=== PATIENT | female | born 1995 | race Hispanic/Latino ===

== ENCOUNTER 2017-02-04 15:41 | Inpatient (IN) | payer MEDICAID, OTHER, SELFPAY ==
[2017-02-04 16:18] VITALS: BMI 27.4
[2017-02-04] MEDS ORDERED: FLU VACC QS2017-18 36 mo. & older 0.5 ML SYRINGE IM ONE (17:00)
[2017-02-04] MEDS ORDERED: Penicillin G Potassium 5 MILL.UNITS VIAL ONE (17:14)
[2017-02-04] MEDS ORDERED: LR / Pitocin 40 units/1000 ml 1,000 ML ONE (17:18)
[2017-02-04] MEDS ORDERED: Lidocaine 1% (PF) 30 ML VIAL ONE (17:19)
[2017-02-04] MEDS ORDERED: Ibuprofen 800 MG TAB PO PRN (17:56)
[2017-02-04] MEDS ORDERED: HYDROcodone/Acetaminophen 5/325 mg Tablet PO PRN ×2 (17:56)
[2017-02-04] MEDS ORDERED: Lidocaine 1% (PF) 30 ML VIAL SC PRN (17:56)
[2017-02-04] MEDS ORDERED: Diphenoxylate HCl/Atropine Tablet PO PRN (17:56)
[2017-02-04] MEDS ORDERED: LR / Pitocin 40 units/1000 ml 1,000 ML IV PRN (17:56)
[2017-02-04] MEDS ORDERED: Carboprost 250 MCG/ML AMP IM PRN (17:56)
[2017-02-04] MEDS ORDERED: Penicillin G Potassium 5 MILL.UNITS in Sodium Chloride 0.9% 100 ML IVPB SCH (17:56)
[2017-02-04] MEDS ORDERED: Lactated Ringer's 1,000 ML IV SCH ×2 (17:56)
[2017-02-04] MEDS ORDERED: Ondansetron HCl/PF 4 MG/2 ML Vial IVP PRN ×2 (17:56→18:01)
[2017-02-04] MEDS ORDERED: Promethazine HCl 25 MG/ML VIAL IM PRN (17:56)
[2017-02-04] MEDS ORDERED: Acetaminophen/Codeine 30-300mg Tablet PO PRN ×2 (18:01)
[2017-02-04] MEDS ORDERED: Lanolin Ointment 7 GM TUBE TOP PRN (18:01)
[2017-02-04] MEDS ORDERED: Benzocaine/Menthol 20-0.5% 60 ML CAN TOP PRN (18:01)
[2017-02-04] MEDS ORDERED: Preparation H Ointment 28 GM TUBE PR PRN (18:01)
[2017-02-04] MEDS ORDERED: Adacel (T-DAP) 0.5 ML VIAL IM ONE (18:01)
[2017-02-04] MEDS ORDERED: Zolpidem Tartrate 5 MG TAB PO PRN (18:01)
[2017-02-04] MEDS ORDERED: Milk Of Magnesia 30 ML UDCUP PO PRN (18:01)
[2017-02-04] MEDS ORDERED: Bisacodyl 10 MG SUPP PR PRN (18:01)
[2017-02-04] MEDS ORDERED: diphenhydrAMINE HCl 25 MG CAP PO PRN (18:01)
[2017-02-04 18:12] LABS: Hematocrit 40.2 % (36.0-47.0); Mean Platelet Volume 7.7 fL (7.4-10.4); Red Blood Cell (RBC) Count 4.57 mill/uL (4.20-5.40); White Blood Cell (WBC) Count 17.1 thou/uL (4.8-10.8)
[2017-02-04] MEDS ORDERED: LR / Pitocin 40 units/1000 ml 1,000 ML IV SCH (18:15)
[2017-02-04] MEDS ORDERED: Penicillin G 2.5 MILL.units 2.5 MILL.UNITS in Premix Bag 1 BAG IVPB SCH (21:00)
[2017-02-04] MEDS: Docusate (Surfak) 240 MG CAP PO SCH (21:58)
[2017-02-04] MEDS: Ibuprofen 800 MG TAB PO SCH (21:58)
[2017-02-05] MEDS: Ibuprofen 800 MG TAB PO SCH ×3 (05:31→21:28)
[2017-02-05] MEDS: Prenatal Vitamin 1 TAB PO SCH (08:55)
[2017-02-05] MEDS: Docusate (Surfak) 240 MG CAP PO SCH ×2 (08:55→21:28)
[2017-02-05] MEDS: Ferrous Sulfate 325 MG TAB PO SCH ×2 (08:57→17:59)
[2017-02-06] MEDS: Ibuprofen 800 MG TAB PO SCH (05:29)
[2017-02-06 08:00] VITALS: BP 121/62; TEMP 98.3
[2017-02-06] MEDS: Ferrous Sulfate 325 MG TAB PO SCH (09:14)
[2017-02-06] MEDS: Prenatal Vitamin 1 TAB PO SCH (09:45)
[2017-02-06] MEDS: Docusate (Surfak) 240 MG CAP PO SCH (09:45)
[2017-02-06] MEDS ORDERED: FLU VACC QS2017-18 36 mo. & older 0.5 ML SYRINGE IM ONE (10:00)
== END 2017-02-06 13:25 | disposition home or self-care (01) | DRG 775 ==
LOC: L&D/OP 15:41 → L&D 17:44 → 3SW 20:03
PROVIDERS: ADMIT Obstetrics & Gynecology; ATTEND Obstetrics & Gynecology
PROC: 10E0XZZ Delivery of Products of Conception, External Approach (ICD-10-PCS; principal; 2017-02-04)
DX: O62.3 Precipitate labor (principal); Z23 Encounter for immunization; Z37.0 Single live birth; Z3A.37 37 weeks gestation of pregnancy
CPT/HCPCS: 85027; 86780; 87340; 90471; 90682; G0008; J2001; J2540; Q2036

== ENCOUNTER 2022-06-25 15:12 | Outpatient (CLI) | payer OTHER | END 2022-06-25 15:13 | disposition home or self-care (01) | LOC: RAD 15:12 | PROVIDERS: ATTEND Family Medicine | DX: M54.42 Lumbago with sciatica, left side (principal) | CPT/HCPCS: 72100 ==